=== PATIENT | male | born 1995 | race Two or more races ===

== ENCOUNTER 2018-07-27 21:56 | Emergency (ER) | payer MEDICAID ==
[~2018-07-27] VITALS: Ht 167.6 cm; Wt 86.2 kg
[2018-07-27 22:02] VITALS: BP 153/88
[2018-07-28] MEDS ORDERED: methylPREDNISolone SOD SUCC 125 MG/2 ML VL IM ONE (00:15)
[2018-07-28] MEDS ORDERED: ACETAMINOPHEN/CODEINE#3 (300/30mg) TAB PO ONE (00:15)
[2018-07-28] MEDS ORDERED: cefTRIAXone SOD 1,000 MG VL IM ONE (00:15)
== END 2018-07-28 01:29 | disposition home or self-care (01) ==
LOC: ER 22:03
DX: K08.89 Other specified disorders of teeth and supporting structures (principal)
CPT/HCPCS: 96372; 99283; J0696; J2930